=== PATIENT | female | born 1990 | race Caucasian/White ===

== ENCOUNTER 2019-07-19 14:36 | Outpatient (CLI) | payer BC, SELFPAY ==
--- NOTE | 2019-07-19 14:47 | XR_ITS ---
WS: [id number] ABDOMEN 1 VIEW(S) HISTORY: Renal Calculi COMPARISON: None available. Moderate diffuse constipation. No obstructive pattern. No suspicious calcifications or masses. No bone abnormality. IUD positioned within the expected location of the uterus. XR/XR KUB [id number] IMPRESSION: Moderate diffuse constipation.
== END 2019-07-19 14:37 | disposition home or self-care (01) ==
LOC: RAD 14:46
PROVIDERS: Family Provider Family Medicine; Visit Provider Urology
DX: K59.00 Constipation, unspecified (principal)
CPT/HCPCS: 74018; 81001

== ENCOUNTER 2020-08-28 14:48 | Outpatient (CLI) | payer BC, SELFPAY ==
--- NOTE | 2020-08-28 15:15 | FLR_ITS ---
PROCEDURE INFORMATION: Exam: FL Upper GI With KUB Exam date and time: 08/28/2020 2:55 PM Age: 30 years old Clinical indication: Condition or disease; Kidney or ureter condition; Calculus (stone) in kidney and calculus (stone) in ureter; Additional info: Stones TECHNIQUE: Imaging protocol: Radiologic examination, gastrointestinal tract, upper with or without delayed images, with KUB. Guided with fluoroscopy. COMPARISON: CR XR KUB [id number] 07/19/2019 2:54 PM FINDINGS: The coal picker image demonstrates stool throughout the colon. There is bowel gas without dilation. No renal calcifications are identified. Evaluation is limited due to overlying bowel gas. There is calcification in the right hemipelvis which may represent a calcified phlebolith. XR/XR KUB [id number] IMPRESSION: There are no acute concerning abnormalities.
== END 2020-08-28 14:49 | disposition home or self-care (01) ==
LOC: RAD 14:54
PROVIDERS: Visit Provider Urology
DX: N20.1 Calculus of ureter (principal); N20.0 Calculus of kidney
CPT/HCPCS: 74018; 81003